=== PATIENT | male | born 1955 | race Caucasian/White ===

== ENCOUNTER 2022-07-16 23:26 | Emergency (ER) | payer MEDICARE ==
[~2022-07-16] VITALS: Ht 170.2 cm; Wt 95.0 kg
[2022-07-16 23:46] VITALS: BP 96/58
[2022-07-16 23:47] LABS: BASO% 0.6 % (0-3); EOS% 5.1 % (0-8); HEMATOCRIT 46.7 % (39.0-50.0); HEMOGLOBIN 15.6 g/dl (14.0-18.0); IMMATURE GRANULOCYTES 0.3 % (0.0-5.0); LYMPH% 39.7 % (15-41); MEAN CELL VOLUME 95.9 fL CALC (80.0-100.0); MEAN CORPUSCULAR HGB CONC 33.4 g/dL CAL (32.0-36.0); MONO% 6.5 % (2-13); NEUT# 4.12 thou/uL (1.82-7.42); NEUT% 47.8 % (42-76); RED BLOOD COUNT 4.87 mill/uL (4.70-6.10); RED CELL DISTRI WIDTH 11.7 % (11.5-15.5)
[2022-07-17] VITALS (8 sets, daily range): BP systolic 68–153; BP diastolic 43–84
[2022-07-17 00:09] LABS: ALBUMIN 4.1 g/dL (3.2-5.0); ALKALINE PHOSPHATASE 117 u/l (38-126); ANION GAP 13 (6-22 (CALC)); BILIRUBIN, TOTAL 0.3 mg/dL (0.0-1.4); BUN 15 mg/dL (8-23); BUN/CREATININE RATIO 22 (12-20 (CALC)); CARBON DIOXIDE 27 mmol/l (22-30); CHLORIDE 100 mmol/l (95-108); CREATININE 0.7 mg/dL (0.7-1.3); GFR FOR AFR.AMER. > 60 ML/MIN (>=60 (CALC)); GFR OTHER RACES > 60 ML/MIN (>=60 (CALC)); POTASSIUM 3.7 mmol/l (3.5-5.1); SGOT/AST 32 u/l (19-48); SODIUM 137 mmol/l (137-146); TOTAL PROTEIN 6.7 g/dL (6.3-8.2)
[2022-07-17 00:25] LABS: ACT PARTIAL THROMBO TIME 23.4 SECONDS (20.0-32.5); PROTHROMBIN TIME 9.9 SECONDS (9.0-12.5)
== END 2022-07-17 01:10 | disposition short-term general hospital (02) ==
LOC: ED 23:26
PROVIDERS: Emergency Medicine
DX: I21.3 ST elevation (STEMI) myocardial infarction of unspecified site (principal); E11.9 Type 2 diabetes mellitus without complications
CPT/HCPCS: J1644

== ENCOUNTER 2022-09-23 09:06 | Emergency (ER) | payer MEDICARE ==
[2022-09-23] VITALS (8 sets, daily range): BP systolic 120–176; BP diastolic 78–107
[~2022-09-23] VITALS: Ht 170.2 cm; Wt 92.7 kg
[2022-09-23] MEDS ORDERED: LANTUS100 UNIT SC (10:12)
[2022-09-23] MEDS ORDERED: NOVOLOG100 UNIT SC (10:13)
[2022-09-23] MEDS ORDERED: REPATHA140 MG/ML (10:14)
[2022-09-23] MEDS ORDERED: ASPIRIN 81 LOW81 MG (10:15)
[2022-09-23] MEDS ORDERED: MIRALAX17 GM (10:16)
[2022-09-23] MEDS ORDERED: MULTIVITAMI9 PO (10:16)
[2022-09-23 11:09] LABS: BASO% 0.6 % (0-3); EOS% 4.5 % (0-8); HEMATOCRIT 47.8 % (39.0-50.0); HEMOGLOBIN 15.6 g/dl (14.0-18.0); IMMATURE GRANULOCYTES 0.5 % (0.0-5.0); LYMPH% 22.1 % (15-41); MEAN CELL VOLUME 93.5 fL CALC (80.0-100.0); MEAN CORPUSCULAR HGB 30.5 pG CALC (26.0-32.0); MEAN CORPUSCULAR HGB CONC 32.6 g/dL CAL (32.0-36.0); NEUT# 5.57 thou/uL (1.82-7.42); NEUT% 65.3 % (42-76); RED BLOOD COUNT 5.11 mill/uL (4.70-6.10); RED CELL DISTRI WIDTH 13.2 % (11.5-15.5)
[2022-09-23] MEDS ORDERED: DECADRON4 MG PO (11:31)
[2022-09-23 12:03] LABS: ALBUMIN 4.3 g/dL (3.2-5.0); ALKALINE PHOSPHATASE 87 u/l (38-126); BILIRUBIN, TOTAL 0.4 mg/dL (0.2-1.3); BUN 14 mg/dL (8-23); BUN/CREATININE RATIO 20 (12-20 (CALC)); CARBON DIOXIDE 31 mmol/l (22-30); CHLORIDE 101 mmol/l (95-108); CREATININE 0.7 mg/dL (0.7-1.3); GFR FOR AFR.AMER. > 60 ML/MIN (>=60 (CALC)); GFR OTHER RACES > 60 ML/MIN (>=60 (CALC)); SGOT/AST 33 u/l (19-48); SODIUM 137 mmol/l (137-146); TOTAL PROTEIN 7.1 g/dL (6.3-8.2)
[2022-09-23 12:09] LABS: ANION GAP 10 (6-22 (CALC)); POTASSIUM 4.5 mmol/l (3.5-5.1)
[2022-09-23] MEDS ORDERED: HYDROCO/APAP1 T10 PO ×3 (12:42→14:51)
[2022-09-23] MEDS ORDERED: LORTAB 7.57.5 MG PO (17:03)
== END 2022-09-23 14:00 | disposition home or self-care (01) ==
LOC: ED 09:06
PROVIDERS: Emergency Medicine
DX: M54.50 Low back pain, unspecified (principal); E11.9 Type 2 diabetes mellitus without complications; I25.2 Old myocardial infarction; Z95.1 Presence of aortocoronary bypass graft; Z79.4 Long term (current) use of insulin